=== PATIENT | male | born 2000 | race Caucasian/White ===

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

== ENCOUNTER → 2021-08-17 | Outpatient (CLI) | payer OTHER ==
--- NOTE | 2021-08-17 14:46 | XR ---
EXAMINATION TYPE: XR clavicle RT DATE OF EXAM: 08/17/2021 COMPARISON: NONE HISTORY: Pain TECHNIQUE: 2 views of the right clavicle are submitted. FINDINGS: There is mild elevation of the distal clavicle relative to the acromion which may reflect g rade 2 AC joint separation. Cortical articular space is well-preserved. Glenohumeral joint is intact. No fracture seen. IMPRESSION: As above
== END | disposition home or self-care (01) ==
LOC: RADXRMAIN 14:25
PROVIDERS: ATTEND Internal Medicine
DX: M25.511 Pain in right shoulder (principal)

== ENCOUNTER 2024-04-18 18:46 | Emergency (ER) | payer OTHER ==
[2024-04-18 18:58] VITALS: RESP 18
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
[2024-04-18] MEDS: LIDOCAINE 1% INJ 10MG/ML (20 ML MDV) SQ ONE (22:00)
[2024-04-18 23:38] VITALS: BP 125/79; PULSE 84; TEMP 98.3
== END 2024-04-18 23:49 | disposition home or self-care (01) ==
LOC: EC 18:46
CPT/HCPCS: 10060; 99282